=== PATIENT | female | born 1970 | race Caucasian/White ===

== ENCOUNTER 2018-01-11 15:09 | Emergency (ER) | payer MEDICAID ==
[~2018-01-11] VITALS: Ht 157.5 cm; Wt 75.1 kg
[~2018-01-11 15:09] MED LIST: SULF-154 PO
[2018-01-11 15:23] VITALS: BP 158/90; PULSE 87; RESP 16; TEMP 97.8; O2SAT 97
[2018-01-11] MEDS ORDERED: PROPARACAINE HCL 0.5% OPHT SOLN 15 ML BTL EACH EYE ONE (15:45)
[2018-01-11] MEDS ORDERED: KETOROLAC TROMETHAMINE 30 MG/ML (IVP) VIAL IV PUSH ONE (15:45)
[2018-01-11] MEDS ORDERED: CLINDAMYCIN 600 MG/NS PREMIX 50 ML IV ONE (15:45)
[2018-01-11 16:36] LABS: BASOPHIL % 0.4 % (0.0-2.0); EOSINOPHIL # 0.4 TH/MM3 (0-0.4); EOSINOPHIL % 4.8 % (0.0-4.0); HEMATOCRIT 38.5 % (35.0-46.0); HEMOGLOBIN 13.1 GM/DL (11.6-15.3); LYMPH % 27.2 % (9.0-44.0); LYMPHOCYTE # 2.2 TH/MM3 (1.0-4.8); MEAN CELL VOLUME 82.9 FL (80.0-100.0); MEAN CORPUSCULAR HEMOGLOBIN 28.2 PG (27.0-34.0); MEAN CORPUSCULAR HGB CONC 34.1 % (32.0-36.0); MEAN PLATELET VOLUME 8.4 FL (7.0-11.0); MONO % 7.2 % (0.0-8.0); MONOCYTE # 0.6 TH/MM3 (0-0.9); NEUT % 60.4 % (16.0-70.0); PLATELET COUNT 316 TH/MM3 (150-450); RED BLOOD COUNT 4.64 MIL/MM3 (4.00-5.30); RED CELL DISTRIBUTION WIDTH 14.9 % (11.6-17.2); WHITE BLOOD COUNT 8.2 TH/MM3 (4.0-11.0)
--- NOTE | 2018-01-11 17:06 | PD ---
HPI Chief Complaint: Eye Problems/Injury Time Seen by Provider: 15:33 Travel History International Travel<30 days: No Contact w/Intl Traveler<30days: No Traveled to known affect area: No History of Present Illness HPI 47-year-old female that presents to the ED for evaluation of right eye swelling and pain. Per patient she's had this for the past 3 days. Per patient is not getting better. She states having some blurry vision because of the swelling. Per patient most of the pain is on the upper eyelid. She does also has swelling and redness on the lower eyelid and cheek. She denies any fevers chills or sweats. Per patient the pain feels like a pressure. States having a headache from it to. Denies any injury to the eye or face. Denies any chest pain or shortness of breath. She does state having some congestion allergy to ciprofloxacin. Has not taken anything for this. No urinary or bowel movement issues. Denies wearing contacts or glasses. Pain per patient is 10 out of 10. No prior injuries or surgeries to this area. She does have a history of kidney failure secondary to . PFSH Past Medical History Hx Anticoagulant Therapy: No Arthritis: Yes Asthma: Yes (SEASONAL PER PT) Diabetes: No Immunizations Current: Yes Renal Failure: Yes (DURING , NOW RESOLVED) Tetanus Vaccination: > 5 Years Influenza Vaccination: No ?: Not Tubal Ligation: Yes Past Surgical History Section: Yes Social History Alcohol Use: No Tobacco Use: No (NEVER) Substance Use: No Allergies-Medications (Allergen,Severity, Reaction): Coded Allergies: ciprofloxacin (Unverified Allergy, Severe, Throat swelling, 01/11/18) Reported Meds & Prescriptions Reported Meds & Active Scripts Active Septra Ds (Trimethoprim/Sulfamethoxazole) Tab 1 Tab PO BID 7 Days Review of Systems Except as stated in HPI: all other systems reviewed are Neg Physical Exam Narrative GENERAL: SKIN: Warm and dry. HEAD: Atraumatic. Normocephalic. EYES: Pupils equal and round 4 mm reactive to light and accommodation. No scleral icterus. No injection or drainage. EOM intact bilaterally. Peripheral vision intact. Patient does have soft tissue swelling on the superior and inferior eyelid. More noticeable on the superior with more tenderness to palpation on the superior lateral aspect. No obvious mass or deformity with definite appears to be erythematous and warm to the touch. Patient also has similar swelling and erythema on the lower eyelid and cheek. No obvious lymphadenopathy noted. Fluorescein stain reveals no sign of abrasion or laceration. ENT: No nasal bleeding or discharge. Mucous membranes pink and moist. TMs are clear with no sign of infection or perforation. Tongue is midline. No uvula deviation. NECK: Trachea midline. No JVD. CARDIOVASCULAR: Regular rate and rhythm. RESPIRATORY: No accessory muscle use. Clear to auscultation. Breath sounds equal bilaterally. GASTROINTESTINAL: Abdomen soft, non-tender, nondistended. Hepatic and splenic margins not palpable. MUSCULOSKELETAL: Extremities without clubbing, cyanosis, or edema. No obvious deformities. NEUROLOGICAL: Awake and alert. No obvious cranial nerve deficits. Motor grossly within normal limits. Five out of 5 muscle strength in the arms and legs. Normal speech. PSYCHIATRIC: Appropriate mood and affect; insight and judgment normal. Data Data Last Documented VS Vital Signs Date Time Temp Pulse Resp B/P (MAP) Pulse Ox O2 Delivery O2 Flow Rate FiO2 01/11/18 15:23 97.8 87 16 158/90 (112) 97 Orders Orders Complete Blood Count With Diff (01/11/18 15:37) Basic Metabolic Panel (Bmp) (01/11/18 15:37) Iv Access Insert/Monitor (01/11/18 15:37) Ct Facial Bones W Iv Contrast (01/11/18 ) Proparacaine 0.5% Opth Soln (Alcaine 0.5 (01/11/18 15:45) Clindamycin 600 Mg/Ns Premix (Cleocin 60 (01/11/18 15:45) Ketorolac Inj (Toradol Inj) (01/11/18 15:45) Iohexol 350 Inj (Omnipaque 350 Inj) (01/11/18 17:45) Ed Discharge Order (01/11/18 18:28) Labs Laboratory Tests Test 01/11/18 16:20 White Blood Count 8.2 TH/MM3 Red Blood Count 4.64 MIL/MM3 Hemoglobin 13.1 GM/DL Hematocrit 38.5 % Mean Corpuscular Volume 82.9 FL Mean Corpuscular Hemoglobin 28.2 PG Mean Corpuscular Hemoglobin Concent 34.1 % Red Cell Distribution Width 14.9 % Platelet Count 316 TH/MM3 Mean Platelet Volume 8.4 FL Neutrophils (%) (Auto) 60.4 % Lymphocytes (%) (Auto) 27.2 % Monocytes (%) (Auto) 7.2 % Eosinophils (%) (Auto) 4.8 % Basophils (%) (Auto) 0.4 % Neutrophils # (Auto) 5.0 TH/MM3 Lymphocytes # (Auto) 2.2 TH/MM3 Monocytes # (Auto) 0.6 TH/MM3 Eosinophils # (Auto) 0.4 TH/MM3 Basophils # (Auto) 0.0 TH/MM3 CBC Comment DIFF FINAL Differential Comment Blood Urea Nitrogen 10 MG/DL Creatinine 0.81 MG/DL Random Glucose 138 MG/DL Calcium Level 8.5 MG/DL Sodium Level 137 MEQ/L Potassium Level 3.3 MEQ/L Chloride Level 105 MEQ/L Carbon Dioxide Level 24.6 MEQ/L Anion Gap 7 MEQ/L Estimat Glomerular Filtration Rate 76 ML/MIN MDM Medical Decision Making Medical Screen Exam Complete: Yes Emergency Medical Condition: Yes Medical Record Reviewed: Yes Interpretation(s) Last Impressions Maxillofacial CT 01/11/18 0000 Signed Impressions: Service Date/Time: Thursday, January 11, 2018 17:40 - CONCLUSION: 1. Right preseptal periorbital soft tissue swelling, most characteristic of a mild cellulitis. No discrete abscess. Ang Frausto MD CBC & BMP Diagram 01/11/18 16:20 Calcium Level 8.5 Differential Diagnosis Preseptal cellulitis versus orbital cellulitis versus maxillary sinusitis versus conjunctivitis Narrative Course 47-year-old female that presents to the ED for evaluation of swelling and pain to the right eye. Patient was properly examined and was found to have signs and symptoms of concurrent etiology. Definite concerning for preseptal versus orbital cellulitis. Recommend labs and imaging. Patient was started on clindamycin and Toradol IV. Labs and imaging showed what appears to be preseptal cellulitis. No sign of orbital cellulitis. Patient was reassured. This time the recommend trial of antibiotics. Patient was already given clindamycin here and Toradol with some relief. She will be given a prescription for clindamycin, Keflex and diclofenac sodium to help with discomfort. She was told to come here for recheck in 48 hours in improvement at all. See ED for worsening symptoms. Ice or warm compresses endorse. Diagnosis Primary Impression: Preseptal cellulitis of right eye Patient Instructions: General Instructions Additional Instructions: Take medications as prescribed. Follow-up with PCP. See ED for any worsening symptoms. Recheck in 48 hours if no improvement at all or worsening symptoms. Apply ice or heat as needed for pain Med/Other Pt SpecificInfo: Prescription(s) given Scripts Cephalexin (Keflex) 500 Mg Cap 500 MG PO Q8H for Infection for 10 Days, #30 CAP 0 Refills Prov: Toño Ndiaye MD 01/11/18 Clindamycin (Clindamycin) 150 Mg Cap 300 MG PO Q8HR for Infection for 10 Days, CAP 0 Refills Prov: Toño Ndiaye MD 01/11/[address] (Diclofenac Sodium DR) 75 Mg Tabdr 75 MG PO BID Y for PAIN SCALE 1 TO 10, #20 TAB 0 Refills Prov: Toño Ndiaye MD 01/11/18 Disposition: 01 DISCHARGE HOME Condition: Ehsan Levine Jan 11, 2018 17:06
[2018-01-11 17:08] LABS: BICARBONATE 24.6 MEQ/L (21.0-32.0); CALCIUM 8.5 MG/DL (8.5-10.1)
[2018-01-11 17:12] LABS: CREATININE 0.81 MG/DL (0.50-1.00)
[2018-01-11] MEDS ORDERED: IOHEXOL 350 MG/ML 10 ML VIAL (for RAD DIAG) IVCONTRAST ONE (17:45)
--- NOTE | 2018-01-11 17:57 | RADRPT ---
EXAM DATE/TIME: 01/11/2018 17:40 [facility] COMPARISON: None. INDICATIONS : <<Right orbital swelling. Evaluate for cellulitis.>> IV CONTRAST: <<95>> cc Omnipaque 350 (iohexol) IV RADIATION DOSE: <<29.92>> CTDIvol (mGy) MEDICAL HISTORY : None SURGICAL HISTORY : Tubal ligation. ENCOUNTER: Initial ACUITY: 1 day PAIN SCALE: 0/10 LOCATION: Right orbit TECHNIQUE: Volumetric scanning of the facial bones was performed. Using automated exposure control and adjustme nt of the mA and/or kV according to patient size, radiation dose was kept as low as reasonably achiev able to obtain optimal diagnostic quality images. DICOM format image data is available electronicall y for review and comparison. FINDINGS: ORBITS: There is right periorbital soft tissue swelling. Swelling is pre-septal. Globe intact. No discrete ab scess. NASAL BONE: The nasal bone and maxillary spine are intact ZYGOMATIC ARCHES: Symmetric without evidence of fracture. SINUSES: The maxillary, ethmoid and frontal sinuses are intact. No air-fluid levels seen. NASAL CAVITY: The nasal septum is intact and midline. The lacrimal ducts are intact. SOFT TISSUES: No radiopaque foreign bodies seen. No soft-tissue swelling is seen. INTRACRANIAL: No intracranial air seen. CRIBIFORM PLATE: Grossly intact. CONCLUSION: 1. Right preseptal periorbital soft tissue swelling, most characteristic of a mild cellulitis. No dis crete abscess. Ang Frausto MD on January 11, 2018 at 17:53 Board Certified Radiologist. This report was verified electronically.
[2018-01-11] MEDS ORDERED: CLIN150C14 PO (18:30)
[2018-01-11] MEDS ORDERED: CEPH-460 PO (18:30)
[2018-01-11] MEDS ORDERED: DICL75TA PO (18:30)
[2018-01-11 19:03] VITALS: BP 122/75
== END 2018-01-11 19:04 | disposition home or self-care (01) ==
LOC: PHEFT 15:09
DX: H00.031 Abscess of right upper eyelid (principal); M19.90 Unspecified osteoarthritis, unspecified site; Z88.1 Allergy status to other antibiotic agents
CPT/HCPCS: 70487; 80048; 85025; 96374; 96375; 99285; J1885; Q9967